=== PATIENT | female | born 1970 | race Caucasian/White ===

== ENCOUNTER 2019-11-01 08:24 | Outpatient (CLI) | payer OTHER | END 2019-11-01 08:29 | disposition home or self-care (01) | LOC: SONOGRAMA 08:24 | DX: E04.2 Nontoxic multinodular goiter (principal) ==

== ENCOUNTER 2025-09-09 06:30 | Day surgery (SDC) | payer OTHER ==
[2025-09-05 13:45] VITALS: BP 145/80
[~2025-09-09] VITALS: Ht 157.5 cm; Wt 106.6 kg
[~2025-09-09 06:30] MED LIST: MOUNJARO2.5 MG/0.5 SQ; SYNTHROID75 MCG PO
[2025-09-09] MEDS ORDERED: CHLORHEXIDINE GLUCONATE 120 ML BOTTLE TOP ONE (10:53)
[2025-09-09] MEDS ORDERED: POVIDONE-IODINE 118 ML BOTT TOP ONE ×3 (10:53→11:46)
[2025-09-09] MEDS ORDERED: IBU600 MG PO (13:39)
== END 2025-09-09 16:55 | disposition home or self-care (01) ==
LOC: CIR.AMB 06:30
PROVIDERS: ATTEND Obstetrics & Gynecology Gynecology
DX: N84.0 Polyp of corpus uteri (principal); D25.0 Submucous leiomyoma of uterus; N95.0 Postmenopausal bleeding